=== PATIENT | male | born 1965 | race Caucasian/White ===

== ENCOUNTER 2022-03-12 23:42 | Observation (INO) | payer BC ==
[2022-03-13] MEDS ORDERED: ONDANSETRON 4 MG/2 ML VIAL ONE ×2 (00:40→16:17)
[2022-03-13] MEDS ORDERED: MORPHINE 4 MG/ML SYR ONE (00:40)
[2022-03-13 00:56] LABS: Protime INR 0.98
[2022-03-13 00:58] LABS: Absolute Lymphocytes (CBC) 2.8 K/uL (0.7-4.9); Lymphocytes % 28.5 % (15.3-44.8); MPV 6.5 fL (7.6-11.3)
[2022-03-13 01:08] LABS: Albumin 3.8 g/dL (3.4-5.0); Bilirubin Direct 0.1 mg/dL (0-0.2); Bilirubin Total 0.3 mg/dL (0.2-1.0); Potassium 3.8 mmol/L (3.5-5.1); Protein, Total 7.9 g/dL (6.4-8.2); Troponin High Sensitivity 6.3 pg/mL (<58.9)
[2022-03-13 04:33] LABS: Urine Blood Negative (Negative); Urine Glucose Negative (Negative); Urine Protein Negative (Negative)
[2022-03-13] MEDS ORDERED: CEFTRIAXONE 1000 MG/VIAL ONE (06:46)
[2022-03-13] MEDS ORDERED: AZITHROMYCIN 500 MG INJ IVPB ONE (06:47)
[2022-03-13] MEDS ORDERED: NA CHLORIDE 0.9% 250 ML ONE ×2 (06:47→07:29)
[2022-03-13] MEDS ORDERED: NA CHLORIDE 0.9% 50 ML ONE (06:47)
--- NOTE | 2022-03-13 07:01 | EDPHYS ---
Physician Documentation [facility] Name: Royce Quiroga Age: 56 yrs Sex: Male : 1965 Arrival Date: 03/12/2022 Time: 23:48 Bed 8 Private MD: ED Physician Esteban Talley HPI: 03/13 00:15 This 56 yrs old Male presents to ER via Ambulatory with complaints of Chest Pain, mh7 Abdominal Pain, Nausea. 00:15 The patient presents with abdominal pain in the epigastric area. mh7 00:15 Onset: The symptoms/episode began/occurred at 22:30. The symptoms do not radiate. mh7 Associated signs and symptoms: Pertinent positives: nausea, Pertinent negatives: anorexia, blood in stools, chest pain, constipation, diarrhea, dysuria, fever, headache, hematuria, palpitations, shortness of breath, testicular pain, vomiting, vomiting blood. The symptoms are described as intermittent, vague, waxing/waning. Modifying factors: The symptoms are alleviated by nothing, the symptoms are aggravated by nothing. Severity of pain: At its worst the pain was moderate today, in the emergency department the pain has improved moderately. Historical: - Allergies: 03/12 23:52 Sulfa (Sulfonamide Antibiotics); ld1 23:52 Unknown diuretic; ld1 - Home Meds: 03/13 07:36 rosuvastatin 40 mg oral tab 1 tab once daily [Active]; metoprolol tartrate 100 mg Oral tw2 tab 1 tab once daily [Active]; losartan 25 mg oral tab 1 tab once daily [Active]; diltiazem HCl 180 mg Oral CDER 1 cap once daily [Active]; - PMHx: 03/12 23:52 Hypertensive disorder; Myocardial infarction; ld1 - PSHx: 23:52 Open heart surgery; 3 heart stents; Appendectomy; ld1 - Immunization history:: Adult Immunizations up to date, Client reports receiving the 2nd dose of the Covid vaccine. - Social history:: Smoking status: Patient denies any tobacco usage or history of. Patient/guardian denies using alcohol. ROS: 03/13 00:15 Constitutional: Negative for fever, chills, and weight loss, Eyes: Negative for injury, mh7 pain, redness, and discharge, ENT: Negative for injury, pain, and discharge, Neck: Negative for injury, pain, and swelling, Cardiovascular: Negative for chest pain, palpitations, and edema, Respiratory: Negative for shortness of breath, cough, wheezing, and pleuritic chest pain, Back: Negative for injury and pain, : Negative for injury, bleeding, discharge, and swelling, MS/Extremity: Negative for injury and deformity, Skin: Negative for injury, rash, and discoloration, Neuro: Negative for headache, weakness, numbness, tingling, and seizure, Psych: Negative for depression, anxiety, suicide ideation, homicidal ideation, and hallucinations, Allergy/Immunology: Negative for hives, rash, and allergies, Endocrine: Negative for neck swelling, polydipsia, polyuria, polyphagia, and marked weight changes, Hematologic/Lymphatic: Negative for swollen nodes, abnormal bleeding, and unusual bruising. Exam: 00:15 Head/Face: Normocephalic, atraumatic. Eyes: Pupils equal round and reactive to light, mh7 extra-ocular motions intact. Lids and lashes normal. Conjunctiva and sclera are non-icteric and not injected. Cornea within normal limits. Periorbital areas with no swelling, redness, or edema. Neck: Trachea midline, no thyromegaly or masses palpated, and no cervical lymphadenopathy. Supple, full range of motion without nuchal rigidity, or vertebral point tenderness. No Meningismus. Chest/axilla: Normal chest wall appearance and motion. Nontender with no deformity. No lesions are appreciated. Cardiovascular: Regular rate and rhythm with a normal S1 and S2. No gallops, murmurs, or rubs. Normal PMI, no JVD. No pulse deficits. Respiratory: Lungs have equal breath sounds bilaterally, clear to auscultation and percussion. No rales, rhonchi or wheezes noted. No increased work of breathing, no retractions or nasal flaring. 00:15 Back: No spinal tenderness. No costovertebral tenderness. Full range of motion. Skin: Warm, dry with normal turgor. Normal color with no rashes, no lesions, and no evidence of cellulitis. MS/ Extremity: Pulses equal, no cyanosis. Neurovascular intact. Full, normal range of motion. Neuro: Awake and alert, GCS 15, oriented to person, place, time, and situation. Cranial nerves II-XII grossly intact. Motor strength 5/5 in all extremities. Sensory grossly intact. Cerebellar exam normal. Normal gait. Psych: Awake, alert, with orientation to person, place and time. Behavior, mood, and affect are within normal limits. 00:15 Constitutional: The patient appears in no acute distress, alert, awake, uncomfortable. 00:15 Abdomen/GI: Inspection: abdomen appears normal, Bowel sounds: normal, in all quadrants, Palpation: moderate abdominal tenderness, in the epigastric area, mass, is not appreciated, rebound tenderness, is not appreciated, voluntary guarding, is not appreciated, involuntary guarding, is not appreciated, no appreciated organomegaly, Rectal exam: the exam is deferred, because of patient request, Indicators: McBurney's point is not tender, Alfaro's sign is negative, Rovsing's sign is negative, Obturator sign is negative, Psoas sign is negative, Liver: no appreciated palpable abnormalities, Hernia: not appreciated. Vital Signs: 03/12 23:50 BP 164 / 106; Pulse 69; Resp 18; Temp 97.5(TE); Pulse Ox 100% on R/A; Weight 83.91 kg; ld1 Height 5 ft. 9 in. (175.26 cm); Pain 08/05; 03/13 01:25 BP 113 / 82; Pulse 60; Resp 16 S; Pulse Ox 96% on R/A; as6 02:57 BP 117 / 79; Pulse 64 MON; Resp 12 S; Pulse Ox 97% on R/A; as6 04:00 BP 112 / 75; Pulse 69; Resp 15 S; Pulse Ox 95% on R/A; as6 05:00 BP 111 / 77; Pulse 57; Resp 12 S; Pulse Ox 97% on R/A; as6 07:00 BP 121 / 91; Pulse 67; Resp 17; Pulse Ox 98% on R/A; tw2 08:00 BP 120 / 77; Pulse 72; Resp 17; Pulse Ox 99% on R/A; tw2 09:00 BP 103 / 74; Pulse 58; Resp 17; Pulse Ox 98% on R/A; tw2 10:00 BP 121 / 82; Pulse 65; Resp 19; Pulse Ox 98% on R/A; tw2 11:00 BP 114 / 86; Pulse 63; Resp 17; Pulse Ox 97% on R/A; tw2 12:00 BP 113 / 80; Pulse 64; Resp 17; Pulse Ox 96% on R/A; tw2 03/12 23:50 Body Mass Index 27.32 (83.91 kg, 175.26 cm) ld1 MDM: 06:58 Differential diagnosis: bowel obstruction, coronary artery disease, cholecystitis, mh7 Cholelithiasis, gastritis, gastroesophageal reflux disease, Hepatitis, non-specific abd pain, pancreatitis, Peptic Ulcer Disease, Perf. Duodenal Ulcer, Ureterolithiasis. Data reviewed: vital signs, nurses notes, lab test result(s), amylase and lipase, cardiac enzymes, CBC, electrolytes, EKG, radiologic studies, CT scan, plain films, ultrasound. Data interpreted: Pulse oximetry: on room air is 97 %. Interpretation: normal. Counseling: I had a detailed discussion with the patient and/or guardian regarding: the historical points, exam findings, and any diagnostic results supporting the discharge/admit diagnosis, lab results, radiology results, the need for further work-up and treatment in the hospital. Response to treatment: the patient's symptoms have mildly improved after treatment. Physician consultation: Giuliano Ramirez MD was contacted at 06:45, regarding patient's condition, and will see patient in ED. 07:01 Patient medically screened. [facility] 03/13 00:27 Order name: Basic Metabolic Panel; Complete Time: [facility] 03/13 00:27 Order name: CBC with Diff; Complete Time: [facility] 03/13 00:27 Order name: LFT's; Complete Time: : [facility] 03/13 00:27 Order name: Magnesium; Complete Time: [facility] 03/13 00:27 Order name: NT PRO-BNP; Complete Time: : [facility] 03/13 00:27 Order name: PT-INR; Complete Time: : [facility] 03/13 00:27 Order name: Troponin HS; Complete Time: :36 [facility] 03/13 00:27 Order name: Lipase; Complete Time: : [facility] 03/13 04:33 Order name: Urine Dipstick-Ancillary; Complete Time: 04:49 EDMS 03/13 04:51 Order name: Blood Culture Adult (2) [facility] 03/13 07:53 Order name: COVID-19 SARS RT PCR (Document "Date of Onset" if Symptomatic) 03/13 12:45 Order name: CBC with Automated Diff [facility] 03/13 12:45 Order name: CBC with Automated Diff [facility] 03/13 12:45 Order name: Comprehensive Metabolic Panel [facility] 03/13 00:27 Order name: XRAY Chest (1 view) [facility] 03/13 00:27 Order name: EKG; Complete Time: 00:28 [facility] 03/13 01:41 Order name: CT Chest For PE Angio [facility] 03/13 01:41 Order name: CT Abd/Pelvis - IV Contrast Only [facility] 03/13 04:52 Order name: US Abdomen Limited [facility] 03/13 12:45 Order name: Comprehensive Metabolic Panel [facility] 03/13 12:45 Order name: Protime (+INR) [facility] 03/13 12:45 Order name: Protime (+INR) [facility] 03/13 12:45 Order name: PTT, Activated Partial Thromb [facility] 03/13 12:45 Order name: PTT, Activated Partial Thromb [facility] 03/13 00:27 Order name: Cardiac monitoring; Complete Time: 00:29 [facility] 03/13 00:27 Order name: EKG - Nurse/Tech; Complete Time: 00:29 [facility] 03/13 00:27 Order name: IV Saline Lock; Complete Time: 00:29 [facility] 03/13 00:27 Order name: Labs collected and sent; Complete Time: 00:29 [facility] 03/13 00:27 Order name: O2 Per Protocol; Complete Time: 00:29 [facility] 03/13 00:27 Order name: O2 Sat Monitoring; Complete Time: 00:29 [facility] 03/13 00:27 Order name: Urine Dipstick-Ancillary (obtain specimen); Complete Time: 05:36 [facility] 03/13 12:45 Order name: CONS Physician Consult [facility] 03/13 12:45 Order name: Clear Liquid EDRI Administered Medications: 00:39 Drug: morphine 4 mg {Note: Verbal order per Dr. Talley.} Route: IVP; Site: right lp1 antecubital; 02:11 Follow up: Response: Pain is decreased lp1 00:47 Drug: Zofran (Ondansetron) 4 mg {Note: Verbal order per Dr. Talley.} Route: IVP; Site: lp1 right antecubital; 02:11 Follow up: Response: No adverse reaction lp1 06:57 Not Given (Physician Discretion; Verbal order per Dr. Delcid): Rocephin (cefTRIAXone) lp1 1 grams IV at per protocol once; Given slow IV push per pharmacy instructions 06:57 Not Given (Physician Discretion; Per Dr. Delcid): AZITHromycin 500 mg IVPB once over lp1 1 hrs; (mix in 250 mL NS) 06:58 CANCELLED (Duplicate Order): Zosyn (piperacillin-tazobactam) 3.375 grams IVPB once over lp1 60 mins; (mix in NS 100 mL) 07:36 Drug: Zosyn (piperacillin-tazobactam) 3.375 grams Route: IVPB; Infused Over: 60 mins; tw2 Site: right antecubital; Disposition Summary: 03/13/22 07:01 Hospitalization Ordered Hospitalization Status: Inpatient Admission [facility] Provider: Isabel Mcdonough Condition: Stable [facility] Problem: new [facility] Symptoms: have improved [facility] Bed/Room Type: Standard [facility] Location: Telemetry/MedSurg (Inpatient)(03/13/22 18:37) Room Assignment: 221(03/13/22 18:37) Diagnosis - Acute cholecystitis [facility] Forms: - Medication Reconciliation Form [facility] - SBAR form [facility] Signatures: Dispatcher [employer] EDMS Suzan Decker Shelby, RN RN ss Meredith Brian RN RN lp1 Danette Do RN RN tw2 Esteban Talley MD MD 7 Samina Wynne RN RN ld1 Corrections: (The following items were deleted from the chart) 06:58 06:58 Zosyn (piperacillin-tazobactam) 3.375 grams IVPB once over 60 mins; (mix in NS lp1 100 mL) ordered. lp1 17:36 07:01 Telemetry/MedSurg (Inpatient) [facility] ss 17:36 07:01 [facility] ss 18:37 17:36 [facility] ER HOLD ss bd 18:37 17:36 ERHOLD- ss bd
--- NOTE | 2022-03-13 07:01 | ER ---
Nurse's Notes [facility] Name: Royce Quiroga Age: 56 yrs Sex: Male : 1965 Arrival Date: 03/12/2022 Time: 23:48 Bed 8 Private MD: Diagnosis: Acute cholecystitis Presentation: 03/12 23:50 Chief complaint: Patient states: Chest pain since 1 hour ago. Mid epigastric. C/O ld1 nausea. Coronavirus screen: At this time, the client does not indicate any symptoms associated with coronavirus-19. Ebola Screen: No symptoms or risks identified at this time. Initial Sepsis Screen: Does the patient meet any 2 criteria? No. Patient's initial sepsis screen is negative. Does the patient have a suspected source of infection? No. Patient's initial sepsis screen is negative. Risk Assessment: Do you want to hurt yourself or someone else? Patient reports no desire to harm self or others. Onset of symptoms was March 12, 2022. 23:50 Method Of Arrival: Ambulatory ld1 23:50 Acuity: FER 3 ld1 Triage Assessment: 23:52 General: Appears in no apparent distress. comfortable, Behavior is calm, cooperative, ld1 appropriate for age. Pain: Complains of pain in chest and epigastric area Pain does not radiate. Pain currently is 10 out of 10 on a pain scale. Quality of pain is described as heavy, Pain began suddenly. EENT: No signs and/or symptoms were reported regarding the EENT system. Neuro: Level of Consciousness is awake, alert, obeys commands, Oriented to person, place, time, situation. Cardiovascular: Capillary refill < 3 seconds Patient's skin is warm and dry. Rhythm is sinus rhythm. Respiratory: Airway is patent Respiratory effort is even, unlabored, Respiratory pattern is regular, symmetrical. GI: Abdomen is flat, non-distended, Reports nausea. : No signs and/or symptoms were reported regarding the genitourinary system. Derm: No signs and/or symptoms reported regarding the dermatologic system. Musculoskeletal: No signs and/or symptoms reported regarding the musculoskeletal system. Historical: - Allergies: 23:52 Sulfa (Sulfonamide Antibiotics); ld1 23:52 Unknown diuretic; ld1 - Home Meds: 03/13 07:36 rosuvastatin 40 mg oral tab 1 tab once daily [Active]; metoprolol tartrate 100 mg Oral tw2 tab 1 tab once daily [Active]; losartan 25 mg oral tab 1 tab once daily [Active]; diltiazem HCl 180 mg Oral CDER 1 cap once daily [Active]; - PMHx: 03/12 23:52 Hypertensive disorder; Myocardial infarction; ld1 - PSHx: 23:52 Open heart surgery; 3 heart stents; Appendectomy; ld1 - Immunization history:: Adult Immunizations up to date, Client reports receiving the 2nd dose of the Covid vaccine. - Social history:: Smoking status: Patient denies any tobacco usage or history of. Patient/guardian denies using alcohol. Screenin/18 00:47 Abuse screen: Denies threats or abuse. Denies injuries from another. Nutritional lp1 screening: No deficits noted. Tuberculosis screening: No symptoms or risk factors identified. Fall Risk None identified. Assessment: 00:38 Reassessment: Verbal order from Dr. Talley for Morhpine 4mg IV now, Zofran 4mg IV now. lp1 General: Behavior is cooperative, anxious, restless. Pain: Complains of pain in epigastric area Pain radiates to back. 00:55 Reassessment: Patient appears in no apparent distress at this time. Patient noted to be lp1 89% on RA, placed on O2 via NC at 2L, up to 95% Patient states symptoms have improved. 02:11 Reassessment: Patient returned from CT. lp1 05:00 Reassessment: Patient appears in no apparent distress at this time. Patient is alert, lp1 oriented x 3, equal unlabored respirations, skin warm/dry/pink. Patient denies pain at this time. 06:38 Reassessment: Dr. Ramirez at bedside to discuss plan of care with patient. lp1 07:45 Reassessment: Patient appears in no apparent distress at this time. Patient is alert, tw2 oriented x 3, equal unlabored respirations, skin warm/dry/pink. 08:00 Reassessment: pts Orly weir# [phone]. tw2 08:45 Reassessment: Patient appears in no apparent distress at this time. Patient and/or tw2 family updated on plan of care and expected duration. Pain level reassessed. Patient is alert, oriented x 3, equal unlabored respirations, skin warm/dry/pink. 09:45 Reassessment: Patient appears in no apparent distress at this time. Patient and/or tw2 family updated on plan of care and expected duration. Pain level reassessed. Patient is alert, oriented x 3, equal unlabored respirations, skin warm/dry/pink. 10:45 Reassessment: Patient appears in no apparent distress at this time. Patient and/or tw2 family updated on plan of care and expected duration. Pain level reassessed. Patient is alert, oriented x 3, equal unlabored respirations, skin warm/dry/pink. 11:45 Reassessment: Patient appears in no apparent distress at this time. Patient and/or tw2 family updated on plan of care and expected duration. Pain level reassessed. Patient is alert, oriented x 3, equal unlabored respirations, skin warm/dry/pink. 12:47 Reassessment: Patient appears in no apparent distress at this time. Patient and/or tw2 family updated on plan of care and expected duration. Pain level reassessed. Patient is alert, oriented x 3, equal unlabored respirations, skin warm/dry/pink. 12:50 Reassessment: charge nurse notified no orders in meditech, pt question poc. tw2 Vital Signs: 03/12 23:50 BP 164 / 106; Pulse 69; Resp 18; Temp 97.5(TE); Pulse Ox 100% on R/A; Weight 83.91 kg; ld1 Height 5 ft. 9 in. (175.26 cm); Pain 08/05; 03/13 01:25 BP 113 / 82; Pulse 60; Resp 16 S; Pulse Ox 96% on R/A; as6 02:57 BP 117 / 79; Pulse 64 MON; Resp 12 S; Pulse Ox 97% on R/A; as6 04:00 BP 112 / 75; Pulse 69; Resp 15 S; Pulse Ox 95% on R/A; as6 05:00 BP 111 / 77; Pulse 57; Resp 12 S; Pulse Ox 97% on R/A; as6 07:00 BP 121 / 91; Pulse 67; Resp 17; Pulse Ox 98% on R/A; tw2 08:00 BP 120 / 77; Pulse 72; Resp 17; Pulse Ox 99% on R/A; tw2 09:00 BP 103 / 74; Pulse 58; Resp 17; Pulse Ox 98% on R/A; tw2 10:00 BP 121 / 82; Pulse 65; Resp 19; Pulse Ox 98% on R/A; tw2 11:00 BP 114 / 86; Pulse 63; Resp 17; Pulse Ox 97% on R/A; tw2 12:00 BP 113 / 80; Pulse 64; Resp 17; Pulse Ox 96% on R/A; tw2 03/12 23:50 Body Mass Index 27.32 (83.91 kg, 175.26 cm) ld1 ED Course: 03/12 23:48 Patient arrived in ED. ja2 23:52 Triage completed. ld1 23:52 Arm band placed on right wrist. ld1 03/13 00:01 Esteban Talley MD is Attending Physician. mh7 00:05 Tho Olivier, RN is Primary Nurse. as6 00:15 Patient has correct armband on for positive identification. Bed in low position. Call lp1 light in reach. Client placed on continuous cardiac and pulse oximetry monitoring. NIBP monitoring applied. 00:25 Inserted saline lock: 20 gauge in right antecubital area, using aseptic technique. lp1 Blood collected. 00:47 Meredith Brian, RN is Primary Nurse. lp1 00:54 XRAY Chest (1 view) In Process Unspecified. EDMS 00:56 Oxygen administration via nasal cannula \T\ 2L/min. lp1 02:19 CT Chest For PE Angio In Process Unspecified. EDMS 02:19 CT Abd/Pelvis - IV Contrast Only In Process Unspecified. EDMS 05:16 US Abdomen Limited In Process Unspecified. EDMS 06:16 No provider procedures requiring assistance completed. lp1 07:00 Isabel Mcdonough MD is Hospitalizing Provider. 7 07:14 Primary Nurse role handed off by Meredith Brian, RN tw2 07:14 Danette Do, RN is Primary Nurse. tw2 17:05 Patient admitted, IV remains in place. tw2 19:08 Primary Nurse role handed off by Danette Do, RN tw2 Administered Medications: 00:39 Drug: morphine 4 mg {Note: Verbal order per Dr. Talley.} Route: IVP; Site: right lp1 antecubital; 02:11 Follow up: Response: Pain is decreased lp1 00:47 Drug: Zofran (Ondansetron) 4 mg {Note: Verbal order per Dr. Talley.} Route: IVP; Site: lp1 right antecubital; 02:11 Follow up: Response: No adverse reaction lp1 06:57 Not Given (Physician Discretion; Verbal order per Dr. Delcid): Rocephin (cefTRIAXone) lp1 1 grams IV at per protocol once; Given slow IV push per pharmacy instructions 06:57 Not Given (Physician Discretion; Per Dr. Delcid): AZITHromycin 500 mg IVPB once over lp1 1 hrs; (mix in 250 mL NS) 06:58 CANCELLED (Duplicate Order): Zosyn (piperacillin-tazobactam) 3.375 grams IVPB once over lp1 60 mins; (mix in NS 100 mL) 07:36 Drug: Zosyn (piperacillin-tazobactam) 3.375 grams Route: IVPB; Infused Over: 60 mins; tw2 Site: right antecubital; Medication: 00:39 VIS not applicable for this client. lp1 Outcome: 07:01 Decision to Hospitalize by Provider. 7 17:05 Admitted to ER Hold. Please see [facility] for further documentation. tw2 17:05 Condition: stable 17:05 Instructed on the need for admit. 20:57 Patient left the ED. as6 Signatures: Dispatcher [employer] EDMS Meredith Brian, RHEA RN lp1 Danette Do RN RN tw2 Esteban Talley MD MD 7 Samina Wynne RN RN 1 Desiree Gomez [facility] Tho Olivier RN RN as6 Corrections: (The following items were deleted from the chart) 00:56 00:55 Reassessment: Patient noted to be 89% on RA, placed on O2 via NC at 2L, up to 95% lp1 lp1 06:57 06:55 Rocephin (cefTRIAXone) 1 grams IV at per protocol in right antecubital lp1 lp1
[2022-03-13] MEDS ORDERED: PIPERACIL/TAZO 3.375 GM VIAL IV ONE ×2 (07:23→16:18)
[2022-03-13] MEDS ORDERED: NA CHLORIDE 0.9% 0 ML IV ONE (07:24)
--- NOTE | 2022-03-13 11:15 | RAD REPORT ---
EXAM DESCRIPTION: US - Abdomen Exam Limited - 03/13/2022 5:15 am CLINICAL HISTORY: The patient is 56 years old and is Male; RUQ pain TECHNIQUE: Real-time ultrasound of the right upper quadrant with image documentation. COMPARISON: CT of the abdomen and pelvis performed the same day. FINDINGS: GALLBLADDER: The gallbladder is distended. Echogenic mobile gallstones are present withi n the gallbladder. Mild gallbladder wall thickening is present. There is trace pericholecystic fluid. There is a negative sonographic Alfaro's sign. COMMON BILE DUCT: Unremarkable as visualized. No stones. No dilation. PANCREAS: Unremarkable as visualized. IMPRESSION: Cholelithiasis with mild gallbladder wall thickening and suggestion of trace pericholecy stic fluid. Findings can be seen with acute cholecystitis in the appropriate clinical setting. Electronically signed by: Kimberly Oneill MD 03/13/2022 5:40 AM CDT Due to temporary technical issues with the PACS/Fluency reporting system, reports are being signed by the in house radiologist without review as a courtesy to ensure prompt reporting. The interpreting r adiologist is fully responsible for the content of the report.
--- NOTE | 2022-03-13 11:40 | RAD REPORT ---
EXAM DESCRIPTION: RAD - Chest Single View - 03/13/2022 12:52 am CLINICAL HISTORY: 56 years Male CHEST PAIN COMPARISON: None TECHNIQUE: AP view of the chest was obtained. FINDINGS: Cardiac silhouette is enlarged. Central vessels are mildly increased. Mediastinal surgical clips and sternal wires noted. No effusion on right. Suspected small left pleural effusion. Mild airspace opacity right infrahilar r egion. Moderate airspace opacity left lung base. No pneumothorax. IMPRESSION: Enlarged heart with mild central congestion. Atelectatic change versus infiltrate lower lungs bilaterally left greater than right. Electronically signed by: Mikaela Marie MD 03/13/2022 1:08 AM CDT Due to temporary technical issues with the PACS/Fluency reporting system, reports are being signed by the in house radiologist without review as a courtesy to ensure prompt reporting. The interpreting r adiologist is fully responsible for the content of the report.
--- NOTE | 2022-03-13 11:40 | RAD REPORT ---
EXAM DESCRIPTION: CT - Abdomen Pelvis W Contrast - 03/13/2022 6:14 am CLINICAL HISTORY: Pain COMPARISON: None Available. TECHNIQUE: CTA of the chest obtained following IV administration of iodinated contrast 300. 3-D/MIP reformatted images available. CT of the abdomen and pelvis was then performed in the portal venous ph ase This exam was performed according to our departmental dose-optimization program, which includes a utomated exposure control, adjustment of the mA and/or kV according to patient size and/or use of ite rative reconstruction technique. FINDINGS: Chest: Pulmonary arteries: Contrast bolus is adequate.No filling defects identified in the pulmonary arterie s to suggest pulmonary embolus. Thyroid: No abnormalities of the visualized thyroid. Great Vessels: Great vessels have normal anatomic configuration. Thoracic Aorta: No abnormalities of the thoracic aorta identified. Heart: Cardiomegaly. Coronary artery atherosclerosis. No significant pericardial effusion. Lymph Nodes: No enlarged mediastinal lymph nodes identified. Esophagus: No abnormalities of the esophagus identified. Other: No additional findings. Lungs: Lingular airspace opacities. Minimal bibasilar dependent atelectasis. Pleura: Small left pleural effusion. Trachea/Airways: No abnormalities of the visualized trachea or airways. Abdomen: Liver: The liver has normal size and density. No intrahepatic mass or biliary dilatation. Gallbladder: Possible mild pericholecystic inflammatory change. No calcified gallstone. Spleen, Pancreas, and Adrenal Glands: The spleen, pancreas, and adrenal glands are unremarkable. Kidneys: The kidneys have normal size without evidence of solid mass or hydronephrosis. Vasculature: Aortoiliac atherosclerosis. IVC. The portal vein is patent. The proximal visceral and renal arteries are patent. Stomach: Mild wall thickening involving the body of stomach. Other: No free intraperitoneal air. No free fluid or lymphadenopathy. Pelvis: Bladder: Urinary bladder is unremarkable. Bowel: No dilated loops of large or small bowel. Appendix: Normal appendix. Pelvis: Prostate is not enlarged. Small fat-containing right inguinal hernia. Bones: Subacute appearing left first rib fracture. No other rib fractures identified. IMPRESSION: 1. No pulmonary embolus identified. 2. Lingular airspace opacities concerning for pneumonia. 3. Small left pleural effusion. 4. Cardiomegaly with coronary artery atherosclerosis. 5. Possible mild pericholecystic inflammatory change. If there is concern for acute cholecystitis r ight upper quadrant ultrasound could provide additional characterization. 6. Mild wall thickening of the body of the stomach. This is nonspecific and could be seen with cassie ritis. Continued follow-up after acute illness with endoscopy or upper GI may be helpful to exclude o ther causes of gastric wall thickening. 7. Subacute appearing left first rib fracture. Electronically signed by: Esvin Kwan 03/13/2022 2:59 AM CDT Due to temporary technical issues with the PACS/Fluency reporting system, reports are being signed by the in house radiologist without review as a courtesy to ensure prompt reporting. The interpreting r adiologist is fully responsible for the content of the report.
[2022-03-13] MEDS ORDERED: MORPHINE 2 MG/ML SYR IV PRN (12:39)
[2022-03-13] MEDS ORDERED: ONDANSETRON 4 MG/2 ML VIAL IV PRN (12:39)
[2022-03-13] MEDS ORDERED: ACETAMINOPHEN 500 MG TAB PO PRN (12:39)
[2022-03-13] MEDS: NA CHLORIDE 0.9% 1,000 ML IV SCH (13:00)
[2022-03-13] MEDS ORDERED: NA CHLORIDE 0.9% 1,000 ML ONE (13:11)
[2022-03-13 14:53] VITALS: BMI 27.3
[2022-03-13] MEDS ORDERED: MORPHINE 2 MG/ML SYR ONE (16:17)
[2022-03-13] MEDS ORDERED: NA CHLORIDE 0.9% 100 ML IV ONE (16:18)
[2022-03-13] MEDS: PIPER TAZO 3.375 GM in NA CHLORIDE 0.9% 100 ML IV SCH (16:55)
--- NOTE | 2022-03-13 17:25 | P.HP ---
Certification for Inpatient Patient admitted to: Observation With expected LOS: <2 Midnights Patient will require the following post-hospital care: None Practitioner: I am a practitioner with admitting privileges, knowledge of patient current condition, hospital course, and medical plan of care. Services: Services provided to patient in accordance with Admission requirements found in Title 42 Section 412.3 of the Code of Federal Regulations Patient History Date of Service: 03/13/22 Reason for admission: Abd pain History of Present Illness: Patient is a 56yo who was admitted to the hospital with pain. Pain was mainly in the epigastric region. He has some right upper quadrant tenderness as well. Throughout the day his pain has subsided. He recently had coronary artery stent placement and afterwards required coronary artery bypass grafting. Patient is a high risk for any kind of surgical intervention. We will do conservative management for questionable cholecystitis. He will be on IV antibiotic therapy and will consult surgery as well. Allergies Sulfa (Sulfonamide Antibiotics) Allergy (Unknown, Verified 03/13/22 10:41) Anaphylaxis Home Medications: Aspirin [[place]] 81 mg PO DAILY 03/13/22 Clopidogrel Bisulfate [Plavix] 75 mg PO DAILY 03/13/22 Empagliflozin [Jardiance] 10 mg PO DAILY 03/13/22 Fluticasone Propionate [Flovent Diskus] 1 spray IH DAILY PRN 03/13/22 Lansoprazole [Prevacid] 15 mg PO DAILY 03/13/22 Losartan Potassium [Cozaar] 25 mg PO DAILY 03/13/22 Metoprolol Tartrate 100 mg PO BID 03/13/22 Rosuvastatin [Crestor*] 40 mg PO BEDTIME 03/13/22 - Past Medical/Surgical History Has patient received pneumonia vaccine in the past: No Diabetic: Yes -: CAD -: GERD -: Diabetes mellitus -: HTN -: SVT -: CABG x1 dates 01/21/22 -: Inferior [place] -: Facial/head Cancer -: alcohol use -: tobacco use -: insomnia -: angina -: CABG 01/21/22 -: PCI - Family History Father Family History: Reviewed- Non-Contributory - Social History Smoking Status: Current every day smoker Alcohol use: Yes Place of Residence: Home Review of Systems 10-point ROS is otherwise unremarkable Physical Examination - Vital Signs Temperature: 99 F Blood Pressure: 115/89 Pulse: 75 Respirations: 14 Pulse Ox (%): 98 - Physical Exam General: Alert, In no apparent distress, Oriented x3 HEENT: Atraumatic, PERRLA, Mucous membr. moist/pink, EOMI, Sclerae nonicteric Neck: Supple, 2+ carotid pulse no bruit, No LAD, Without JVD or thyroid abnormality Respiratory: Clear to auscultation bilaterally, Normal air movement Cardiovascular: Regular rate/rhythm, Normal S1 S2 Gastrointestinal: Soft and benign, Non-distended, No rebound, No guarding, Tenderness Musculoskeletal: No clubbing, No swelling, No tenderness Integumentary: No rashes Neurological: Normal gait, Normal speech, Normal strength at 5/5 x4 extr, Normal tone, Sensation intact, Cranial nerves 3-12 intact, Normal affect Lymphatics: No axilla or inguinal lymphadenopathy - Studies Laboratory Data (last 24 hrs) 03/13/22 00:25: PT 10.8, INR 0.98 03/13/22 00:25: WBC 10.0, Hgb 15.4, Hct 47.0, Plt Count 487 H 03/13/22 00:25: Sodium 139, Potassium 3.8, BUN 15, Creatinine 1.27, Glucose 124 H, Magnesium 2.0, Total Bilirubin 0.3, AST 17, ALT 55, Alkaline Phosphatase 120 H, Lipase 143 Assessment & Plan - Problems (Diagnosis) (1) Cholecystitis Current Visit: Yes Status: Acute (2) Coronary artery disease involving autologous artery coronary bypass graft Current Visit: Yes Status: Acute - Plan Plan: 1. IV antibiotics 2. Gentle hydration 3. Cardiac medications as needed except for antiplatelet therapy x24 hours 4. Pain control 5. GI and DVT prophylaxis Discharge Plan: Home Plan to discharge in: 48 Hours - Advance Directives Does patient have a Living Will: No Does patient have a Durable POA for Healthcare: No - Code Status/Comfort Care Code Status Assessed: Yes Code Status: Full Code Critical Care: No Time Spent Managing PTS Care (In Minutes): 45
[2022-03-14] MEDS: PIPER TAZO 3.375 GM in NA CHLORIDE 0.9% 100 ML IV SCH ×3 (00:53→17:00)
[2022-03-14 04:23] LABS: Absolute Lymphocytes (CBC) 1.8 K/uL (0.7-4.9); Hematocrit 43.6 % (39.6-49.0); Lymphocytes % 24.7 % (15.3-44.8); MPV 6.4 fL (7.6-11.3)
[2022-03-14 04:34] LABS: Albumin 3.2 g/dL (3.4-5.0); Bilirubin Total 0.6 mg/dL (0.2-1.0); Potassium 3.7 mmol/L (3.5-5.1); Protein, Total 6.3 g/dL (6.4-8.2); Protime INR 1.09
--- NOTE | 2022-03-14 07:41 | EKG ---
Test Date: 2022-03-12 Test Time: 23:55:36 [employer] Manager: RIKKI MEASUREMENT RESULTS: Intervals: Rate: 59 WY: 174 QRSD: 82 QT: 426 QTc: 421 [facility]: P: 51 WY: 174 QRS: 55 T: 85 INTERPRETIVE STATEMENTS: Sinus bradycardia Possible Left atrial enlargement Possible Inferior infarct, age undetermined Abnormal ECG No previous ECG available for comparison Electronically Signed On 03-14-22 07:37:28 CDT by Brown Julian
[2022-03-14] MEDS ORDERED: FLUTICASONE PROPIONATE 50 MCG IH PRN (09:42)
[2022-03-14] MEDS: CLOPIDOGREL 75 MG TABLET PO SCH ×3 (09:42→15:33)
[2022-03-14] MEDS: NA CHLORIDE 0.9% 1,000 ML IV SCH (09:53)
[2022-03-14 10:15] VITALS: O2SAT 97
[2022-03-14 11:40] VITALS: BP 122/77; TEMP 97.5
[2022-03-14] MEDS ORDERED: METOPROLOL TAR 50 MG TAB PO SCH (21:00)
[2022-03-14] MEDS ORDERED: ROSUVASTATIN 10 MG TAB PO SCH (21:00)
--- NOTE | 2022-03-15 03:21 | CON ---
Date of Consultation: 03/13/2022 Brief History Of Present Illness: The patient is a 56-year-old male who is admitted to the hospital with abdominal pain in the epigastrium and right upper quadrant and tenderness. He has never had sim ilar episodes before in the past. He did have coronary artery stents placed approximately 2 months a go and is on anticoagulation. He had coronary artery stents, which had issues, ultimately requiring to a CABG surgery shortly thereafter. As such, he continues to be on anticoagulation after his coron nasir artery bypass. He is at high risk for surgery and I have discussed this with him, and he feels s ignificantly better during my portion of his examination as he has received pain medication and has s ignificant improvement and almost complete resolution of his symptoms. Past Medical History: Significant for coronary artery disease, GERD, diabetes, hypertension, SVT, my ocardial infarction. He has had facial skin cancer, alcohol use, tobacco use, insomnia, angina. Past Surgical History: Included coronary artery stents on 11/28/2021 and a CABG on 01/21/2022. Allergies: TO SULFA. Home Medications: Include aspirin, Plavix, Jardiance, Flovent, Pepcid, Cozaar, metoprolol, Crestor. Social History: He continues to be a current everyday tobacco user. He continues to drink alcohol r ecreationally. Review of Systems: Ten-point review of systems other than HPI, denies. Physical Examination: Vital Signs: At the time of my examination, temperature 99, blood pressure 158/89, pulse 75, respira tory rate 14, SpO2 of 98% on room air. General: He is awake, alert, and oriented. Psychiatric: Appropriate, conversive. HEENT: He is normocephalic. Sclerae anicteric. His mucous membranes are moist. Oropharynx is ligia r. Neck: Supple without JVD. Chest: Normal expansion and excursion. Cardiovascular: Regular rate and rhythm. He has a well-healed sternotomy scar. Abdomen: Soft, nontender, nondistended. No rebound. No guarding. No focal peritonitis. Extremities: No clubbing, cyanosis, or edema. Skin: Warm and dry. Laboratory Data: His laboratory exam revealed a white blood cell count of 10.0, hemoglobin is 15.4, hematocrit of 47.0, platelet count was 487, neutrophils were normal at 55%. His PT 10.8, INR 0.98. His sodium was 138, potassium 3.8, chloride 104, carbon dioxide 28, BUN 15, creatinine 1.2, his gluco se was 124, magnesium 2.0. Total bilirubin 0.3, direct bilirubin 0.1, AST 17, ALT 55, alk phos is 12 0, his lipase is 143. UA was negative. He had an imaging performed, which included a CT abdomen and pelvis, which is officially read as no pulmonary embolus identified. Lingular airspace opacities co ncerning for pneumonia. Small left pleural effusion. Cardiomegaly with coronary atherosclerosis. P ossible mild pericholecystic inflammatory changes. There is concern for acute cholecystitis. Right upper quadrant ultrasound can provide additional characterization. Mild wall thickening of body of t he stomach, nonspecific, could be seen with gastritis. Continue to follow up after acute illness wit h endoscopy. Upper GI may exclude other causes of gastric wall thickening. Subacute-appearing left first rib fracture. CTA as described above, which is included. Abdominal ultrasound officially read as cholelithiasis with mild gallbladder wall thickening suggestive of trace pericholecystic fluid. The finding can be seen with cholecystitis in the appropriate clinical setting. Assessment And Plan: This is a 56-year-old male who comes in with possible early biliary colic/carmela cystitis. 1.IV fluid hydration. 2.Antibiotic coverage. 3.Serial exams. 4.I have explained that the patient is at high risk for any surgical procedure as he would have to b e off blood thinners, and as he has had recent coronary artery surgery and is currently receiving ant icoagulation, I recommend continue anticoagulation. Should he require any intervention, he would lik le[place] need a cholecystostomy tube to temporize his gallbladder should it be worse and can plan for surg ical intervention at a later date with anticoagulation can be held for an appropriate clinical time. I have explained the risks, benefits, and alternatives of the above stated plan. The patient agrees to proceed as indicated. He will continue medical management with antibiotics as described. Thank you for this interesting consult. BLANCA/ROBB Voice ID: [id number] Report ID: [id number]
[2022-03-15] MEDS ORDERED: PANTOPRAZOLE 40MG TABLET PO SCH (06:30)
[2022-03-15] MEDS ORDERED: ASPIRIN EC 81 MG TAB PO SCH (09:00)
[2022-03-15] MEDS ORDERED: LOSARTAN POTASSIUM 50 MG TABLET PO SCH (09:00)
== END 2022-03-14 18:00 | disposition home or self-care (01) ==
LOC: ER 23:42 → ERHOLD 03-13 12:40 → 2ND 03-13 19:48
PROVIDERS: ADMIT Hospitalist; ATTEND Hospitalist
DX: K80.00 Calculus of gallbladder with acute cholecystitis without obstruction (principal); I25.119 Atherosclerotic heart disease of native coronary artery with unspecified angina pectoris; K21.9 Gastro-esophageal reflux disease without esophagitis; I10 Essential (primary) hypertension; I47.1 Supraventricular tachycardia; E11.9 Type 2 diabetes mellitus without complications; J90 Pleural effusion, not elsewhere classified; I51.7 Cardiomegaly; G47.00 Insomnia, unspecified; I25.2 Old myocardial infarction; F17.200 Nicotine dependence, unspecified, uncomplicated; Z20.822 Contact with and (suspected) exposure to COVID-19; Z95.1 Presence of aortocoronary bypass graft; Z95.5 Presence of coronary angioplasty implant and graft; Z85.828 Personal history of other malignant neoplasm of skin; Z79.01 Long term (current) use of anticoagulants; Z79.02 Long term (current) use of antithrombotics/antiplatelets; Z79.82 Long term (current) use of aspirin; Z79.84 Long term (current) use of oral hypoglycemic drugs; Z79.899 Other long term (current) drug therapy; Z88.2 Allergy status to sulfonamides
CPT/HCPCS: 93005; 87040 ×2; 85025 ×2; 80048; 36415 ×2; 83735; 87205; 85610 ×2; 80076; 85730; 81003; 84484; 83690; 80053; 83880; 71275; 74177; 71045; 76705; 96375; 96374; 99285; U0003; Q9967; J2543 ×4; J0456; J2270; J7050 ×2; J7030 ×2; J2405 ×2; G0378 ×3